=== PATIENT | male | born 1975 | race Hispanic/Latino ===

== ENCOUNTER 2022-01-27 15:43 | Emergency (ER) | payer OTHER, SELFPAY ==
[2022-01-27 15:53] VITALS: BP 140/76; PULSE 71; RESP 16; TEMP 35.3; O2SAT 100; BMI 23.3
--- NOTE | 2022-01-27 15:58 | DI.RAD.S_ITS ---
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 COMPARISON: None. FINDINGS: Bones: No fractures or dislocations. No suspicious bony lesions. Soft tissues: No suspicious soft tissue calcifications. Defect noted in soft tissues of the the tip of the thumb compatible with laceration. Small 4 x 1 millimeter linear radiodense foreign body noted in the soft tissues near the laceration. IMPRESSION: No fracture. No osseous lesion. If symptoms and/or clinical suspicion for pathology persists, further assessment with repeat radiographs (7-10 days) or advanced imaging (e.g. CT, MRI or bone scan) should be considered. Dictated by: Armida Álvarez MD, PhD on 01/27/2022 at 16:39 Approved by: Armida Álvarez MD, PhD on 01/27/2022 at 16:40
[2022-01-27] MEDS: HYDROCODONE/ACET 5/325 TABLET 2 TAB PO (16:11)
[2022-01-27] MEDS: TRANEXAMIC ACID 1,000 MG VIAL 1000 MG TOP (17:27)
[2022-01-27] MEDS: LIDOCAINE 1% W/EPI 1 ML SUBCUT (17:28)
[2022-01-27] MEDS: TET,DIPH,PERTUSS(ACELL),VAC/PF 0.5 ML SYRINGE IM (17:31)
[2022-01-27 17:50] VITALS: BP 124/60; PULSE 70; RESP 18; O2SAT 98
--- NOTE | 2022-01-27 18:50 | ED.WOUNDLAC ---
HPI - Wound/Laceration <MISHEL Mchugh Last Filed: 01/27/22 19:08> General Chief Complaint: Wound/Laceration Stated Complaint: rt thumb cut Time Seen by Provider: 01/27/22 16:21 Mode of arrival: Family Vehicle History of Present Illness HPI narrative: This is a 46-year-old male presents to the emergency department due to a right thumb laceration onset just prior to arrival. 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 Denies any changes in range of motion at the IP joint. Tetanus is not up-to-date. Patient is [place]-speaking and majority of history obtained through his niece. Related Data Previous Rx's Medication Instructions Recorded cephalexin 500 mg capsule 500 mg PO QID 7 Days #28 cap 01/27/22 Allergies Allergy/AdvReac Type Severity Reaction Status Date / Time No Known Drug Allergies Allergy Verified 01/27/22 15:55 Review of Systems <MISHEL Mchugh Last Filed: 01/27/22 19:08> Review of Systems Narrative: GENERAL: Denies chills, fatigue, malaise, fever, sweats. HEENT: Denies sinus pain, ear pain, sore throat, difficulty swallowing, dizziness. RESPIRATORY: Denies dyspnea, cough, wheezing, hemoptysis, sputum. CARDIOVASCULAR: Denies chest pain, palpitations, orthopnea, edema, GASTROINTESTINAL: Denies nausea, vomiting, abdominal pain, diarrhea, constipation, melena. : Denies dysuria, frequency, incontinence, hematuria, urinary retention. MUSCULOSKELETAL: denies weakness, joint pain, or bony pain. Right thumb pain SKIN: Denies rash, skin lesions, or other NEUROLOGIC: Denies weakness, headache, numbness, change in speech, confusion, seizures, incoordination. PSYCHIATRIC: No concerning psychosocial issues. 12 point review of systems is negative except for those stated above Patient History <MISHEL Mchugh Last Filed: 01/27/22 19:08> Social History Smoking Status: Never smoker Smoking Status: Never smoker Substance Use Type: does not use Exam <MISHEL Mchugh Last Filed: 01/27/22 19:08> Narrative Exam Narrative: GENERAL: Well-developed patient, in mild distress. HEAD: Atraumatic. Normocephalic. EYES: Pupils equal round and reactive. Extraocular motions intact. No scleral icterus. No injection or drainage. ENT: Nose without bleeding, purulent drainage. Throat without erythema, tonsillar hypertrophy or exudate. Airway patent. NECK: Trachea midline. Non tender CARDIOVASCULAR: Regular rate and rhythm without murmurs, gallops, or rubs. RESPIRATORY: Clear to auscultation. Breath sounds equal bilaterally. No wheezes, rales, or rhonchi. GASTROINTESTINAL: Abdomen soft, non-tender, nondistended. EXTREMITIES: No edema or joint tenderness. BACK: Nontender without deformity or crepitance. No flank tenderness. NEURO: AOx3. SKIN: Approximately 2.5 x 3 cm avulsion injury of the right thumb. Maintains flexion and extension at the interphalangeal joint. Distally neurovascularly intact. Initial Vital Signs Initial Vital Signs: Vital Signs Temperature 95.6 F L 01/27/22 15:53 Pulse Rate 71 01/27/22 15:53 Respiratory Rate 16 01/27/22 15:53 Blood Pressure 140/76 01/27/22 15:53 Pulse Oximetry 100 01/27/22 15:53 <Shayy Bradford DO - Last Filed: 01/27/22 20:25> Initial Vital Signs Initial Vital Signs: Vital Signs Temperature 95.6 F L 01/27/22 15:53 Pulse Rate 71 01/27/22 15:53 Respiratory Rate 16 01/27/22 15:53 Blood Pressure 140/76 01/27/22 15:53 Pulse Oximetry 100 01/27/22 15:53 Procedures <MISHEL Mchugh Last Filed: 01/27/22 19:08> Laceration Repair Laceration 1: Time of procedure: 18:00 Site: other (Right thumb) Description: other (6 cm in circumference avulsion injury) Depth: simple, single layer Local Anesthetic: lidocaine 1% and with epi Amount of anesthesia used (mL): 5 Skin layer closed with: nylon Skin layer suture size: 4-0 Number of sutures: 13 Technique: simple, interrupted Course <MISHEL Mchugh Last Filed: 01/27/22 19:08> Orders Ordered: ED Orders 01/27/22 15:58 XR finger RT min 2V Stat Discontinued Medications Hydrocodone Bitart/Acetaminophen (Hydrocodone/Acet 5/325 Tablet) 2 tab PO NOW ONE Stop: 01/27/22 16:09 Last Admin: 01/27/22 16:11 Dose: 2 tab Documented by: TOYIN Diphtheria/Tetanus/Acell Pertussis (Tet,Diph,Pertuss(Acell),Vac/Pf 0.5 Ml Syringe) 0.5 ml IM .ONCE ONE Stop: 01/27/22 17:32 Last Admin: 01/27/22 17:31 Dose: 0.5 ml Documented by: NOEL Lidocaine/Epinephrine (Lidocaine 1% W/Epi) 1 ml SUBCUT NOW ONE Stop: 01/27/22 16:23 Last Admin: 01/27/22 17:28 Dose: 1 ml Documented by: NOEL Tetanus/Diphtheria Toxoids (Tetanus Diphtheria Toxoids 0.5 Ml Vial) 0.5 ml IM .ONCE ONE Stop: 01/27/22 16:25 Last Admin: 01/27/22 17:30 Dose: Not Given Documented by: NOEL Tranexamic Acid (Tranexamic Acid 1,000 Mg Vial) 1,000 mg TOP NOW ONE Stop: 01/27/22 17:20 Last Admin: 01/27/22 17:27 Dose: 1,000 mg Documented by: NOEL Vital Signs Vital signs: Vital Signs - 8 hr 01/27/22 15:53 01/27/22 17:50 01/27/22 19:14 Temperature 95.6 F L Pulse Rate 71 70 70 Respiratory Rate 16 18 18 Blood Pressure 140/76 124/60 120/70 Pulse Oximetry 100 98 96 <Shayy Bradford DO - Last Filed: 01/27/22 20:25> Orders Ordered: ED Orders 01/27/22 15:58 XR finger RT min 2V Stat Discontinued Medications Hydrocodone Bitart/Acetaminophen (Hydrocodone/Acet 5/325 Tablet) 2 tab PO NOW ONE Stop: 01/27/22 16:09 Last Admin: 01/27/22 16:11 Dose: 2 tab Documented by: TOYIN Diphtheria/Tetanus/Acell Pertussis (Tet,Diph,Pertuss(Acell),Vac/Pf 0.5 Ml Syringe) 0.5 ml IM .ONCE ONE Stop: 01/27/22 17:32 Last Admin: 01/27/22 17:31 Dose: 0.5 ml Documented by: NOEL Lidocaine/Epinephrine (Lidocaine 1% W/Epi) 1 ml SUBCUT NOW ONE Stop: 01/27/22 16:23 Last Admin: 01/27/22 17:28 Dose: 1 ml Documented by: NOEL Tetanus/Diphtheria Toxoids (Tetanus Diphtheria Toxoids 0.5 Ml Vial) 0.5 ml IM .ONCE ONE Stop: 01/27/22 16:25 Last Admin: 01/27/22 17:30 Dose: Not Given Documented by: NOEL Tranexamic Acid (Tranexamic Acid 1,000 Mg Vial) 1,000 mg TOP NOW ONE Stop: 01/27/22 17:20 Last Admin: 01/27/22 17:27 Dose: 1,000 mg Documented by: NOEL Vital Signs Vital signs: Vital Signs - 8 hr 01/27/22 15:53 01/27/22 17:50 01/27/22 19:14 Temperature 95.6 F L Pulse Rate 71 70 70 Respiratory Rate 16 18 18 Blood Pressure 140/76 124/60 120/70 Pulse Oximetry 100 98 96 MDM - Wound/Laceration <Moy Hobson PA-C - Last Filed: 01/27/22 19:08> Imaging Data Extremity x-ray #1: Radiologist's Impression: [place] [address] XRay Report Signed Patient: Johnnie Leach MR#: [id number] : 1975 Acct:[id number] Age/Sex: 46 / M Date of Service: 01/27/22 Loc: ED Accession Number: [id number] ?? Procedure: XR finger RT min 2V Ordering Provider: Shayy Bradford D.O. PROCEDURE:? XR FINGER RT MIN 2V ? INDICATIONS:? 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 TECHNIQUE:? AP hand, 2 views of the right 1st finger(s) acquired.? ? COMPARISON:? None. ? FINDINGS:? ? Bones:? No fractures or dislocations.? No suspicious bony lesions.? ? Soft tissues:? No suspicious soft tissue calcifications.? Defect noted in soft tissues of the the tip of the thumb compatible with laceration.? Small 4 x 1 millimeter linear radiodense foreign body noted in the soft tissues near the laceration.? ? IMPRESSION:? No fracture. No osseous lesion. If symptoms and/or clinical suspicion for pathology persists, further assessment with repeat radiographs (7-10 days) or advanced imaging (e.g. CT, MRI or bone scan) should be considered. ? ? Dictated by: Armida Álvarez MD, PhD on 01/27/2022 at 16:39 ? ? Approved by: Armida Álvarez MD, PhD on 01/27/2022 at 16:40 ? [facility] Narrative Medical decision making narrative: This is a 46-year-old male presenting to the emergency department due to a right thumb avulsion injury. Patient maintained flexion at the PIP joint and a low concern for tendon injury. X-ray showed no evidence of any kind of fractures and no bone was exposed. Patient brought the remaining ?chunk? of his thumb which was reattached using simple interrupted sutures. Recommend he follow-up with his primary care provider urgent care for possible suture removal. Keflex prescribed for infection prophylaxis. Tetanus updated Discharge Plan Departure Patient Disposition: Home Clinical Impression: Avulsion of skin Instructions: DI for Laceration Repair Activity Restrictions/Additional Instructions: Thank you for coming to the [facility] Emergency Department today. I am glad that we were able to attach the part of your thumb. The stitches should come out in about 10 days. You may go to a local urgent care or Hospital for suture removal and further evaluation. Please take the antibiotics to avoid any infections. I hope you feel better soon. Meet por venir puneet al [facility]artamento [facility] Emer[facility]. Me alegro de que hayamos podido adjuntar la parte de pastor pulgar. Los puntos deber?an salir en unos 10 d?as. Puede acudir a un centro de atenci?n de urgencia local o a un hospital para que le extraigan las suturas y realicen ismael evaluaci?n adicional. [place] los antibi?ticos para evitar cualquier infecci?n. Espero que pronto te sientas mejor. Prescriptions: New cephalexin 500 mg capsule 500 mg PO QID 7 Days Qty: 28 0RF Visit Report Forms: Patient Portal/API <Shayy Bradford, - Last Filed: 06/02/22 20:25> Cosign ED Attending Cosignature Attestation: I was immediately available in the department for consultation. Documentation has been reviewed. Patient was also seen by myself. Discussed plan and agree with currently plan today.
[2022-01-27 19:14] VITALS: BP 120/70; PULSE 70; RESP 18; O2SAT 96
== END 2022-01-27 19:14 | disposition home or self-care (01) ==
PROVIDERS: Emergency Provider Physician Assistant Medical
DX: S61.011A Laceration without foreign body of right thumb without damage to nail, initial encounter (principal); W45.8XXA Other foreign body or object entering through skin, initial encounter; Z23 Encounter for immunization
CPT/HCPCS: 12002; 73140; 90471; 99283; 90715

== ENCOUNTER 2022-02-10 18:05 | Emergency (ER) | payer OTHER, SELFPAY ==
[2022-02-10 18:10] VITALS: BP 123/82; PULSE 70; RESP 18; TEMP 36.6; O2SAT 99; BMI 24.2
--- NOTE | 2022-02-10 18:46 | ED_ITS ---
HPI - Skin/Abscess/Foreign Bdy <MISHEL Mchugh Last Filed: 02/10/22 18:52> General Chief complaint: Recheck/Abnormal Lab/Rx Stated complaint: Removal of Stitches, Right Thumb Time Seen by Provider: 02/10/22 18:11 Source: patient Mode of arrival: Ambulatory Limitations: no limitations History of Present Illness HPI narrative: 46-year-old male presenting to the emergency department due to suture removal. The patient in a right thumb laceration 14 days ago which was closed without complications. States he took the antibiotics as prescribed. Denies any decreases in range of motion of the finger. Denies any fevers, numbness, spreading redness of the hand, or any other concerning signs or symptoms. Related Data Allergies Allergy/AdvReac Type Severity Reaction Status Date / Time No Known Drug Allergies Allergy Verified 01/27/22 15:55 Review of Systems <MISHEL Mchugh Last Filed: 02/10/22 18:52> Review of Systems Narrative: GENERAL: Denies chills, fatigue, malaise, fever, sweats. HEENT: Denies sinus pain, ear pain, sore throat, difficulty swallowing, dizziness. RESPIRATORY: Denies dyspnea, cough, wheezing, hemoptysis, sputum. CARDIOVASCULAR: Denies chest pain, palpitations, orthopnea, edema, GASTROINTESTINAL: Denies nausea, vomiting, abdominal pain, diarrhea, constipation, melena. : Denies dysuria, frequency, incontinence, hematuria, urinary retention. MUSCULOSKELETAL: denies weakness, joint pain, or bony pain SKIN: Healing wound to right thumb. Denies drainage, spreading erythema, NEUROLOGIC: Denies weakness, headache, numbness, change in speech, confusion, seizures, incoordination. PSYCHIATRIC: No concerning psychosocial issues. 12 point review of systems is negative except for those stated above Patient History <MISHEL Mchugh Last Filed: 02/10/22 18:52> Social History Smoking Status: Never smoker Smoking Status: Never smoker Substance Use Type: does not use Exam <MISHEL Mchugh Last Filed: 02/10/22 18:52> Narrative Exam Narrative: GENERAL: Well-developed patient, in mild distress. HEAD: Atraumatic. Normocephalic. EYES: Pupils equal round and reactive. Extraocular motions intact. No scleral icterus. No injection or drainage. ENT: Nose without bleeding, purulent drainage. Throat without erythema, tonsillar hypertrophy or exudate. Airway patent. NECK: Trachea midline. Non tender CARDIOVASCULAR: Regular rate and rhythm without murmurs, gallops, or rubs. RESPIRATORY: Clear to auscultation. Breath sounds equal bilaterally. No wheezes, rales, or rhonchi. GASTROINTESTINAL: Abdomen soft, non-tender, nondistended. EXTREMITIES: No edema or joint tenderness. BACK: Nontender without deformity or crepitance. No flank tenderness. NEURO: AOx3. SKIN: Right thumb has well-healing wound to the palmar aspect. Sutures in place without dehiscence. Purple in color due to patient applying some kind of topical ointment from [place] on the area. Initial Vital Signs Initial Vital Signs: Vital Signs Temperature 97.9 F 02/10/22 18:10 Pulse Rate 70 02/10/22 18:10 Respiratory Rate 18 02/10/22 18:10 Blood Pressure 123/82 02/10/22 18:10 Pulse Oximetry 99 02/10/22 18:10 Oxygen Delivery Method 02/10/22 18:10 <Lisandro Moncada DO - Last Filed: 02/19/22 00:36> Initial Vital Signs Initial Vital Signs: Vital Signs Temperature 97.9 F 02/10/22 18:10 Pulse Rate 70 02/10/22 18:10 Respiratory Rate 18 02/10/22 18:10 Blood Pressure 123/82 02/10/22 18:10 Pulse Oximetry 99 02/10/22 18:10 Oxygen Delivery Method 02/10/22 18:10 Course <MISHEL Mchugh Last Filed: 02/10/22 18:52> Vital Signs Vital signs: Vital Signs - 8 hr 02/10/22 18:10 Temperature 97.9 F Pulse Rate 70 Respiratory Rate 18 Blood Pressure 123/82 Pulse Oximetry 99 Oxygen Delivery Method Room Air <DO Solis Whitmore Last Filed: 02/19/22 00:36> Vital Signs Vital signs: Vital Signs - 8 hr 02/10/22 18:10 Temperature 97.9 F Pulse Rate 70 Respiratory Rate 18 Blood Pressure 123/82 Pulse Oximetry 99 Oxygen Delivery Method Room Air MDM - Skin/Abscess/Foreign Bdy <MISHEL Mchugh Last Filed: 02/10/22 18:52> MDM Narrative Medical decision making narrative: 46-year-old male presents emergency department for suture removal. Wound appears to be healing well without any evidence of infection. No evidence of any decreases in range of motion in the bone. Sutures removed without complication. Recommended routine follow-up with primary care provider. Discharge Plan Departure Patient Disposition: Home Clinical Impression: Visit for suture removal Instructions: DI for Suture Removal Activity Restrictions/Additional Instructions: Thank you for coming to the [facility] Emergency Department today. The wound appears to be healing well. Please monitor the area for evidence of infection such as spreading redness or drainage. I am glad you are feeling better. Meet por venir puneet al [facility]. La herida parece estar sanando allison. Controle el ?conor en busca de evidencia de infecci?n, brent enrojecimiento o drenaje. Me alegro de que te sientas mejor. Visit Report Forms: Patient Portal/API <Lisandro Moncada DO - Last Filed: 02/19/22 00:36> Cosign ED Attending Cosignature Attestation: I was immediately available in the department for consultation. This documentation has been reviewed and I agree with assessment and plan. Supervised by Lisandro Moncada DO
== END 2022-02-10 18:56 | disposition home or self-care (01) ==
PROVIDERS: Emergency Provider Physician Assistant Medical
DX: Z48.02 Encounter for removal of sutures (principal)
CPT/HCPCS: 99281